=== PATIENT | female | born 1935 | race Caucasian/White ===

== ENCOUNTER 2018-09-01 12:08 | Emergency (ER) | payer OTHER ==
[~2018-09-01] VITALS: Ht 157.5 cm; Wt 50.8 kg
[~2018-09-01 12:08] MED LIST: ASPIR 8181 MG PO; D-20001 TAB PO; EVISTA60 MG PO; IBUPROFEN400 MG PO; METOPROLOL SUCC50 M1 PO; PROAIR HFA0.09 MG/A1 INH; VITAMIN D1 TA1 PO; [UNRECOGNIZED DRUG - OTHER]; [UNRECOGNIZED DRUG - OTHER] PO; [UNRECOGNIZED DRUG - OTHER] PO; [UNRECOGNIZED DRUG - OTHER] PO; [UNRECOGNIZED DRUG - OTHER] PO
[2018-09-01 12:15] VITALS: BP 124/98; Ht 157.5 cm; Wt 50.8 kg
== END 2018-09-01 13:31 | disposition home or self-care (01) ==
LOC: ED 12:08
DX: S52.591A Other fractures of lower end of right radius, initial encounter for closed fracture (principal); J45.909 Unspecified asthma, uncomplicated; I10 Essential (primary) hypertension; E78.00 Pure hypercholesterolemia, unspecified; M19.90 Unspecified osteoarthritis, unspecified site; Z88.8 Allergy status to other drugs, medicaments and biological substances; W01.0XXA Fall on same level from slipping, tripping and stumbling without subsequent striking against object, initial encounter; Y93.89 Activity, other specified; Y92.89 Other specified places as the place of occurrence of the external cause; Y99.8 Other external cause status
CPT/HCPCS: Q0092